=== PATIENT | male | born 1955 | race Caucasian/White ===

== ENCOUNTER 2019-12-03 09:40 | Outpatient (CLI) | payer BC, SELFPAY ==
--- NOTE | 2019-12-03 10:14 | XR_ITS ---
WS: [id number] XR lumbar spine f/e only [id number] REASON FOR EXAM: SPONDYLOLISTHESIS,LUMBAR REGION FINDINGS: Degenerates spurring are noted L1, L2, L3 anteriorly. The disc spaces and the vertebral bodies are normal. Normal flexion and extension views. There is spurring posteriorly L5-S1 with mild spinal stenosis suspected. XR/XR lumbar spine f/e only [id number] IMPRESSION: Suspect mild spinal stenosis L5-S1. Degenerate changes at L1-L2-L3. Normal flexion-extension views.
== END 2019-12-03 09:41 | disposition home or self-care (01) ==
PROVIDERS: PCP Nurse Practitioner; Visit Provider Nurse Practitioner
DX: M43.16 Spondylolisthesis, lumbar region (principal)
CPT/HCPCS: 72120